=== PATIENT | female | born 2000 ===

== ENCOUNTER 2019-05-04 16:35 | Day surgery (SDC) | payer MEDICAID ==
[2019-05-04 17:23] VITALS: BMI 32.7
[2019-05-04 17:29] VITALS: BP 129/58; TEMP 98.6
[2019-05-04] MEDS ORDERED: Promethazine HCl 25 MG/ML VIAL IM PRN (18:24)
[2019-05-04] MEDS ORDERED: Ondansetron PF 4 MG/2 ML Vial IVP PRN (18:24)
[2019-05-04] MEDS ORDERED: hydrALAZINE 20 MG/ML VIAL SLOW IVP PRN (18:24)
[2019-05-04 18:54] LABS: Amphetamine Not Detected (NotDetected); Barbiturates Screen Not Detected (NotDetected); Benzodiazepine Screen Not Detected (NotDetected); Cocaine Metabolite Screen Not Detected (NotDetected); Medtox Control Line Valid? VALID (VALID); Medtox Reader # READER 4; Methadone Not Detected (NotDetected); Methamphetamine Not Detected (NotDetected); Opiate Screen Not Detected (NotDetected); Oxycodone Screen Not Detected (NotDetected); Phencyclidine (PCP) Not Detected (NotDetected); THC/Cannabinoid Screen Not Detected (NotDetected); Tricyclic Screen Not Detected (NotDetected)
[2019-05-04 19:21] LABS: Hemoglobin 10.6 g/dL (12.0-16.0); Mean Corpuscular HGB CONC 33.5 g/dL (32.0-36.0); Mean Corpuscular Hemoglobin 27.1 pg (25.0-35.0); Mean Platelet Volume 7.5 fL (7.4-10.4); Platelet Count 279 thou/uL (130-400); RBC Distribution Width 13.5 % (11.5-14.5); White Blood Cell (WBC) Count 10.1 thou/uL (4.8-10.8)
[2019-05-04 20:03] LABS: Syphilis Antibody Nonreactive (Nonreactive); Syphilis Antibody Index 0.12 S/CO (<1.00 Non-Reactive)
--- NOTE | 2019-05-04 20:30 | ULT ---
Complete obstetrical ultrasound INDICATION: Lower abdominal pain TECHNIQUE: Grayscale, M-mode Doppler and Doppler images were obtained of the abdomen and pelvis to ev aluate the patient's known . COMPARISON: None. FINDINGS: Number of gestations: Single. Presentation: Cephalic. Placental location: Posterior Previa: No evidence for previa. Cervical length: 4.04 cm without evidence of funneling. ELISA: 21.5 cm. heart rate: 150 bpm. Biparietal diameter: 6.89cm, 27 weeks and 5 days, 48th percentile. Head circumference: 25.19 cm, 27 weeks and 3 days, 19th percentile Abdominal circumference: 22.79 cm, 27 weeks and 1 day, 34th percentile Femoral length: 5.16cm, 27 weeks and 4 days, 39th percentile Estimated weight: 1064 g +/- 157g 2 lbs. 6 oz. +/- 6 ounces, 35th percentile SURVEY: head: Normal appearing. Cerebellum: Normal appearing. Cisterna magna: Normal appearing. Lateral ventricles: Normal appearing. 4 chamber heart: Normal appearing.. Stomach: Normal appearing. Kidneys: Normal appearing. Cord insertion: Normal appearing. Bladder: Normal appearing. Spine: Normal appearing. Lips and nose: Normal appearing. Extremities: Normal appearing. Three-vessel CORD: Normal appearing. The average gestational age by ultrasound is 27 weeks 3 dayswith estimated due date of July 31, 2019 . The estimated dates by clinical data is not providedwith estimated due date of not estimated. IMPRESSION: 1. Single live intrauterine gestation with size and dates as above.
[2019-05-04 21:17] LABS: Bacteria/HPF None Seen HPF (None Seen); Bilirubin Negative (Negative); Blood, Urine Negative (Negative); Clarity Turbid (Clear); Glucose, Urine (Dipstick) Normal (Negative); Leukocyte Negative Leu/uL (Negative); Mucous/LPF Rare LPF (<2+); Nitrite Negative (Negative); Protein, Urine (Dipstick) Negative (Neg-Trace); RBC/HPF 0-3 HPF (0-3); Squamous Epithelial 0-3 HPF (0-3); Urobilinogen Normal mg/dL (Less than 2); WBC/HPF 0-3 HPF (0-3)
[2019-05-04 22:58] LABS: HBSAg Index 0.19 S/CO (0-0.99); Hep B Surf Ag Non-Reactive S/CO (NonReactive)
[2019-05-04 23:08] LABS: HBSAB Concentration 27.82 mIU/mL; Hep B Surf AB Reactive (NonReactive)
[2019-05-05] MEDS ORDERED: FLU VACC QS2019-20(6MOS UP)/PF 60 MCG/0.5 ML SYRINGE IM ONE (09:00)
== END 2019-05-04 21:30 ==
LOC: L&D/OP 16:35
PROVIDERS: ATTEND Obstetrics & Gynecology
DX: O99.89 Other specified diseases and conditions complicating pregnancy, childbirth and the puerperium (principal); R10.30 Lower abdominal pain, unspecified; Z3A.27 27 weeks gestation of pregnancy
CPT/HCPCS: 36415; 76815; 80306; 81001; 85027; 86706; 86762; 86780; 86850; 86900; 86901; 87340